=== PATIENT | male | born 1985 | race African-American/Black ===

== ENCOUNTER 2017-05-10 21:56 | Emergency (ER) | payer OTHER ==
[~2017-05-10 21:56] MED LIST: ALBUTEROL17 GM INH; BACTRIM DS TABL1 TA1 PO; CLEOCIN PO; FLEXERIL10 MG PO; HCTZ PO; HYDROCHLOROTHIA25 MG PO; HYDROCODON-ACE1 EAC7 PO; IBUPROFEN PO; IBUPROFEN800 MG PO; KEFLEX PO; KEFLEX500 MG PO; LORTAB 5/500 TA1 TA1 PO; NAPROSYN500 MG PO; NORVASC10 MG PO; TESSALON200 MG PO; TYLENOL #3 PO; VICODIN 5/1 TAB 5/50 PO; ZITHROMAX1 G/PKT PO
[2017-05-10 23:50] LABS: BASOPHIL# 0.1 X10e3 (0-0.3); BASOPHIL% 0.5 % (0-2.5); EOSINOPHIL# 0.1 X10e3 (0-0.7); EOSINOPHIL% 0.7 % (0.0-7.0); HEMATOCRIT 41.7 % (38.0-50.0); LYMPHOCYTE# 2.3 X10e3 (1.0-3.5); LYMPHOCYTE% 20.1 % (17.0-45.0); MEAN CELL VOLUME 85.1 FL (83-96); MEAN CORPUSCULAR HEMOGLOBIN 26.5 PG (28-34); MEAN CORPUSCULAR HGB CONC 31.2 g/dL (30-36); MEAN PLATELET VOLUME 8.7 FL (6.5-11.5); MONOCYTE# 0.7 X10e3 (0-1.0); MONOCYTE% 6.6 % (3.0-12.0); NEUTROPHIL# 8.1 X10e3 (1.5-7.1); NEUTROPHIL% 72.1 % (40-75); PLATELET COUNT 223 X10e3 (140-420); RED CELL DISTRIBUTION WIDTH 15.9 % (11.0-15.5); WHITE BLOOD COUNT 11.3 X10e3 (4.0-10.5)
[2017-05-10 23:53] LABS: DIFF IND NO
[2017-05-11 00:13] LABS: ALBUMIN SERUM 3.8 g/dL (3.5-5.0); BILIRUBIN, DIRECT 0.1 mg/dL (0.0-0.2); BILIRUBIN,INDIRECT 0.5 mg/dL (0.0-0.9); BILIRUBIN,TOTAL 0.6 mg/dL (0.2-2.0); BUN/CREATININE RATIO 23.75; CALCIUM SERUM 8.8 mg/dL (8.4-10.2); CREATININE SERUM 0.8 mg/dL (0.6-1.4); MAGNESIUM 1.9 mg/dL (1.6-3.0); PROTEIN TOTAL SERUM 7.6 g/dL (6.0-8.3)
== END 2017-05-11 00:50 | disposition home or self-care (01) ==
LOC: CED 21:56
PROVIDERS: Emergency Medicine
DX: R20.2 Paresthesia of skin (principal); I10 Essential (primary) hypertension
CPT/HCPCS: 36415; 80048; 80076; 82947; 83735; 85025; 99283

== ENCOUNTER 2017-05-23 14:02 | Emergency (ER) | payer OTHER ==
[~2017-05-23] VITALS: Ht 182.9 cm; Wt 239.5 kg
--- NOTE | ~2017-05-23 | CR20 ---
[facility] A Service of [facility] RADIOLOGY TEXT RESULTS PATIENT: MATTEO NIEVES LOCATION: [facility] : [birth year] UNIT #: [id number] AGE: [address]: Angie Snell APRN SEX: M ORDER DR: [id number] [facility] [address] [place], [place] [address] [id number] E MR#: [id number] #: [id number] NAME: MTATEO NIEVES : 1985 SEX: M STUDY DATE/TIME: 05/23/2017 14:31 UNIT: CFTX ROOM: STUDY DESCRIPTION: CR Ankle Min 3 Views Lt Attending Physician: Angie Snell A.P.R.N. Ordering Physician: Ed Doctor [id number] [facility] Primary Care Physician: Mukesh Beaulieu M.D. MEDICAL IMAGING REPORT This report is preliminary unless electronic signature is present EXAM 3 views of the left ankle. DATE 05/23/2017 HISTORY 31-year-old male with left ankle pain today. No known injury. COMPARISON None. FINDINGS No acute fracture or joint dislocation is seen. 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 Chronic-appearing well-corticated calcification inferior to the medial malleolus likely represent sequelae of old trauma. No unexpected retained or radiopaque foreign body is seen. Mild spurring at the anterior articular surface of the tibia at the ankle joint. IMPRESSION 1. Mild degenerative changes of the left ankle. 2. No acute left ankle findings. 3. Chronic-appearing calcification inferior to the medial malleolus likely representing sequelae of remote trauma. Dictated by... Inocencia Lomas M.D. THIS IS AN ELECTRONICALLY VERIFIED REPORT Inocencia Lomas M.D. at 05/25/2017 9:34 PM LLH/rnr [facility] A Service of [facility] RADIOLOGY TEXT RESULTS PATIENT: MATTEO NIEVES LOCATION: [facility] : 85 UNIT #: [id number] AGE: [address]: Angie Snell APRN SEX: M ORDER DR: TD: 05/23/2017 16:29 JOB #: [id number] MEDICAL IMAGING REPORT Page 1 of 1 COPY
== END 2017-05-23 15:26 | disposition home or self-care (01) ==
LOC: CFTX 14:02 → CED 14:02 → CFTX 14:24
DX: S93.422A Sprain of deltoid ligament of left ankle, initial encounter (principal); X58.XXXA Exposure to other specified factors, initial encounter; Y92.9 Unspecified place or not applicable
CPT/HCPCS: 29540; 73610; 99283